=== PATIENT | female | born 1945 | race Caucasian/White ===

== ENCOUNTER 2017-09-29 10:42 | Inpatient (IN) | payer MEDICARE, BC ==
[~2017-09-29] VITALS: Ht 165.1 cm; Wt 98.7 kg
[~2017-09-29 10:42] MED LIST: ALBU90OI INH; ALBU90OI61 INH; ALPR.5 PO; AMLO5 PO; ASPI81CH PO; ASPI81EC PO; ATOR10 PO; ATOR20 PO; ATOR40TA PO; AZIT250 PO; AZIT500 PO; B Complete1 EACH PO; B-12500 MCG PO; BENZ100A PO; BUME2 PO; Biotin1 MG PO; CALCIUM ACETAT667 MG PO; CALMAGZIN PO; CARV25 PO; CARV3.125 PO; CARV6.25 PO; CHOL10002 PO; CINA30; CINA30 PO; CLON.1 PO; CLON.2 PO; CLON.5 PO; CLOP75 PO; CODGUAEL PO; CONEST1.25 PO; CYAN1000 PO; CYAN500 PO; Calcium Acetat667 MG PO; DILT60 PO; DOXY100 PO; ERGO400 PO; ERGO50000 PO; ESTMED1.5T; ESTMED1.5T PO; FERR325 PO; FLUSAL2505 IH; GABA100 PO; GABA800 PO; HYDACE5 PO; HYDR10 PO; HYDRA50 PO; INSDET100 SC; INSDET100 SQ; INSDET100 SUBQ; INSUASPI SC; INSUASPI SUBQ; LEVE500 PO; LEVFLO250 PO; LISI20 PO; METO25 PO; METO25ER PO; MIDO2.5 PO; Midodrine HCl10 MG PO; Mirapex0.5 MG PO; Mobic15 MG PO; NITR.1TP TOP; NORTHERA100 MG PO; Nephro-Vite RX1 EA PO; Neurontin 300300 MG PO; OMEP20ER PO; Omeprazole20 M1; Omeprazole20 M1 PO; PARO10 PO; PARO20 PO; PARO30 PO; POTCHL20ER PO; PRAM.125 PO; PRAM.5 PO; PRAV40 PO; PRED10 PO; PRED20 PO; PRED5 PO; Percocet 5-3251 EACH PO; Prednisone20 MG PO; RENAVITE; Renvela800 MG PO; SEVEC800 PO; SIMV40 PO; SIMVASTATIN; SODBIC650 PO; SODPOL15SA PO; Simvastatin20 MG PO; TRIBENZOR; TRIBENZOR 20-51 EACH PO; TRIBENZOR 40-11 EAC1 PO; VELPHORO500 MG; VELPHORO500 MG PO; VICODIN 5-3001 EACH PO; VITAMIN D32000 UNIT PO; VITAMIN D35000 UNIT PO; Vitamin D2 PO; ZINC15 PO; [UNRECOGNIZED DRUG - OTHER]; [UNRECOGNIZED DRUG - OTHER]; [UNRECOGNIZED DRUG - OTHER]; [UNRECOGNIZED DRUG - OTHER]; [UNRECOGNIZED DRUG - OTHER]; [UNRECOGNIZED DRUG - OTHER]; [UNRECOGNIZED DRUG - OTHER]
[2017-09-29 11:03] LABS: BASOPHILS ABSOLUTE AUTO 0.06 K/mm3 (0.00-0.23); BASOPHILS PERCENT AUTO 1 % (0-2); EOSINOPHILS ABSOLUTE AUTO 0.14 K/mm3 (0.00-0.68); EOSINOPHILS PERCENT AUTO 2 % (0-6); Hematocrit 34.7 % (33.0-51.0); Hemoglobin 10.6 g/dL (11.5-16.0); IMMATURE GRAN ABSOLUTE AUTO 0.02 K/mm3 (0.00-0.10); IMMATURE GRAN PERCENT AUTO 0 % (0-1); LYMPHOCYTES PERCENT AUTO 8 % (21-46); MONOCYTES ABSOLUTE AUTO 0.45 K/mm3 (0.16-1.47); MONOCYTES PERCENT AUTO 6 % (4-13); Mean Corpuscular HGB 28.4 pg (26.0-34.0); Mean Corpuscular HGB Conc 30.5 g/dL (31.5-36.5); Mean Corpuscular Volume 93 fL (80-100); Mean Platelet Volume 9.6 fL (9.1-12.4); NEUTROPHILS ABSOLUTE AUTO 6.32 K/mm3 (1.96-9.15); NEUTROPHILS PERCENT AUTO 83 % (41-73); Platelet Count 212 K/mm3 (150-400); RDW Coefficient Variation 16.7 % (11.7-14.2); RDW Standard Deviation 56.4 fL (35.1-46.3); Red Blood Cell Count 3.73 M/mm3 (3.80-5.20); White Blood Cell Count 7.59 K/mm3 (4.00-11.30)
[2017-09-29 11:15] LABS: International Normalized Ratio 1.03; Prothrombin Time Results 10.7 Sec (9.7-11.5)
[2017-09-29 11:25] LABS: Albumin, Blood 3.5 g/dL (3.4-5.0); Albumin/Globulin Ratio 0.8 (0.8-1.8); Bilirubin, Total 0.6 mg/dL (0.1-1.0); Bun/Creatinine Ratio 4.5 (12.0-20.0); Calcium, Blood 9.6 mg/dL (8.5-10.1); Creatinine, Blood 2.86 mg/dL (0.40-1.00); Globulin, Blood 4.2 g/dL (2.2-4.0); Potassium, Blood 3.7 mmol/L (3.5-5.5); Total Protein, Blood 7.7 g/dL (6.4-8.2); Troponin I 0.059 ng/mL (0.000-0.040)
[2017-09-30 04:52] LABS: BASOPHILS ABSOLUTE AUTO 0.09 K/mm3 (0.00-0.23); BASOPHILS PERCENT AUTO 1 % (0-2); EOSINOPHILS ABSOLUTE AUTO 0.32 K/mm3 (0.00-0.68); EOSINOPHILS PERCENT AUTO 5 % (0-6); Hematocrit 32.4 % (33.0-51.0); Hemoglobin 9.8 g/dL (11.5-16.0); IMMATURE GRAN ABSOLUTE AUTO 0.04 K/mm3 (0.00-0.10); IMMATURE GRAN PERCENT AUTO 1 % (0-1); LYMPHOCYTES ABSOLUTE AUTO 1.28 K/mm3 (0.84-5.20); LYMPHOCYTES PERCENT AUTO 19 % (21-46); MONOCYTES PERCENT AUTO 8 % (4-13); Mean Corpuscular HGB 28.4 pg (26.0-34.0); Mean Corpuscular HGB Conc 30.2 g/dL (31.5-36.5); Mean Corpuscular Volume 94 fL (80-100); NEUTROPHILS ABSOLUTE AUTO 4.45 K/mm3 (1.96-9.15); NEUTROPHILS PERCENT AUTO 67 % (41-73); Platelet Count 223 K/mm3 (150-400); RDW Coefficient Variation 16.8 % (11.7-14.2); RDW Standard Deviation 57.2 fL (35.1-46.3); Red Blood Cell Count 3.45 M/mm3 (3.80-5.20); White Blood Cell Count 6.68 K/mm3 (4.00-11.30)
[2017-09-30 05:15] LABS: Bun/Creatinine Ratio 5.7 (12.0-20.0); Calcium, Blood 9.4 mg/dL (8.5-10.1); Creatinine, Blood 4.72 mg/dL (0.40-1.00); Potassium, Blood 3.9 mmol/L (3.5-5.5)
[2017-10-02 05:13] LABS: Hematocrit 30.2 % (33.0-51.0); Hemoglobin 9.3 g/dL (11.5-16.0)
[2017-10-02 05:39] LABS: Magnesium, Blood 2.8 mg/dL (1.6-2.4)
[2017-10-02 05:44] LABS: Albumin, Blood 2.9 g/dL (3.4-5.0); Anion Gap 11 mmol/L (6-16); Blood Urea Nitrogen 56 mg/dL (8-24); CO2, Blood 29 mmol/L (21-32); Calcium, Blood 9.1 mg/dL (8.5-10.1); Chloride, Blood 90 mmol/L (98-108); Creatinine, Blood 8.02 mg/dL (0.40-1.00); Glomerular Filtration Rate 5 (60-); Glucose, Blood 191 mg/dL (70-99); Phosphorus, Blood 5.9 mg/dL (2.5-4.9); Potassium, Blood 4.3 mmol/L (3.5-5.5); Sodium, Blood 130 mmol/L (136-145)
[2017-10-02] MEDS ORDERED: TIOT18 INH (14:49)
[2017-10-02] MEDS ORDERED: PANT40 PO (14:49)
[2017-10-02] MEDS ORDERED: Nitroglycerin0.4 MG SL (14:50)
[2017-10-02] MEDS ORDERED: Lisinopril2.5 MG PO (14:50)
[2017-10-03 05:31] LABS: HCV Non Reactive (NR)
[2018-07-23] MEDS ORDERED: LEVE500 PO (12:32)
== END 2017-10-02 15:55 | disposition home or self-care (01) | DRG 313 ==
LOC: ER 10:42 → MEDS 13:49 → ENPENDDIS 10-02 13:00 → MEDS 10-02 15:55
PROVIDERS: Emergency Medicine; Internal Medicine; Internal Medicine Nephrology
PROC: 5A1D70Z Performance of Urinary Filtration, Intermittent, Less than 6 Hours Per Day (ICD-10-PCS; principal; 2017-10-02)
DX: R07.9 Chest pain, unspecified (principal); I25.10 Atherosclerotic heart disease of native coronary artery without angina pectoris; E11.22 Type 2 diabetes mellitus with diabetic chronic kidney disease; E11.51 Type 2 diabetes mellitus with diabetic peripheral angiopathy without gangrene; N18.6 End stage renal disease; I12.0 Hypertensive chronic kidney disease with stage 5 chronic kidney disease or end stage renal disease; I47.1 Supraventricular tachycardia; E87.1 Hypo-osmolality and hyponatremia; I25.2 Old myocardial infarction; E78.5 Hyperlipidemia, unspecified; D63.1 Anemia in chronic kidney disease; J44.9 Chronic obstructive pulmonary disease, unspecified; K21.9 Gastro-esophageal reflux disease without esophagitis; F17.210 Nicotine dependence, cigarettes, uncomplicated; E21.3 Hyperparathyroidism, unspecified; E83.39 Other disorders of phosphorus metabolism; I34.0 Nonrheumatic mitral (valve) insufficiency; Z99.2 Dependence on renal dialysis; Z99.81 Dependence on supplemental oxygen; Z95.5 Presence of coronary angioplasty implant and graft; Z95.1 Presence of aortocoronary bypass graft; Z79.82 Long term (current) use of aspirin; Z79.02 Long term (current) use of antithrombotics/antiplatelets; Z79.899 Other long term (current) drug therapy; Z91.048 Other nonmedicinal substance allergy status; Z79.4 Long term (current) use of insulin
CPT/HCPCS: 36415; 71046; 78452; 80048; 80053; 80069; 80074; 82947; 83735; 83880; 84132; 84484; 85014; 85018; 85025; 85610; 85730; 86706; 93005; 93010; 93017; 93306; 94640; 94760; 96374; 99285; A9500; J0280; J0881; J1650; J1815; J2785; J7030

== ENCOUNTER 2017-11-09 11:09 | Day surgery (SDC) | payer MEDICARE, BC ==
[~2017-11-09] VITALS: Ht 165.1 cm; Wt 102.0 kg
[~2017-11-09 11:09] MED LIST changes: +Lisinopril2.5 MG PO; +Nitroglycerin0.4 MG SL; +PANT40 PO; +TIOT18 INH
[2017-11-09] MEDS ORDERED: INSDET100 SC (12:05)
[2018-07-23] MEDS ORDERED: LEVE500 PO (12:32)
== END 2017-11-09 22:37 | disposition home or self-care (01) ==
LOC: MHTC 11:09
PROC: B246ZZ4 Ultrasonography of Right and Left Heart, Transesophageal (ICD-10-PCS; principal; 2017-11-09)
DX: I34.0 Nonrheumatic mitral (valve) insufficiency (principal); I25.5 Ischemic cardiomyopathy; I25.2 Old myocardial infarction; I13.2 Hypertensive heart and chronic kidney disease with heart failure and with stage 5 chronic kidney disease, or end stage renal disease; N18.6 End stage renal disease; E78.00 Pure hypercholesterolemia, unspecified; I50.9 Heart failure, unspecified; J44.9 Chronic obstructive pulmonary disease, unspecified; Z87.891 Personal history of nicotine dependence; Z99.2 Dependence on renal dialysis; Z95.1 Presence of aortocoronary bypass graft
CPT/HCPCS: 76376; 93312; 93325; 99152; 99153; J2250; J2310; J2405; J3010; J7040

== ENCOUNTER 2018-08-23 11:50 | Day surgery (SDC) | payer MEDICARE, BC | END 2018-08-23 23:01 | disposition home or self-care (01) | LOC: WOUND 11:50 | DX: E11.621 Type 2 diabetes mellitus with foot ulcer (principal); I70.234 Atherosclerosis of native arteries of right leg with ulceration of heel and midfoot; L97.512 Non-pressure chronic ulcer of other part of right foot with fat layer exposed; E11.29 Type 2 diabetes mellitus with other diabetic kidney complication; I12.0 Hypertensive chronic kidney disease with stage 5 chronic kidney disease or end stage renal disease; E11.22 Type 2 diabetes mellitus with diabetic chronic kidney disease; N18.6 End stage renal disease; Z99.2 Dependence on renal dialysis; Z72.0 Tobacco use | CPT/HCPCS: G0463 ==

== ENCOUNTER 2018-09-11 00:31 | Day surgery (SDC) | payer MEDICARE, BC | END 2018-09-11 22:37 | disposition home or self-care (01) | LOC: WOUND 00:31 | DX: E11.621 Type 2 diabetes mellitus with foot ulcer (principal); I70.234 Atherosclerosis of native arteries of right leg with ulceration of heel and midfoot; E11.29 Type 2 diabetes mellitus with other diabetic kidney complication; I12.0 Hypertensive chronic kidney disease with stage 5 chronic kidney disease or end stage renal disease; E11.22 Type 2 diabetes mellitus with diabetic chronic kidney disease; N18.6 End stage renal disease; Z99.2 Dependence on renal dialysis; Z72.0 Tobacco use | CPT/HCPCS: G0463 ==

== ENCOUNTER 2018-09-18 00:09 | Day surgery (SDC) | payer MEDICARE, BC | END 2018-09-18 23:00 | disposition home or self-care (01) | LOC: WOUND 00:09 | DX: E11.621 Type 2 diabetes mellitus with foot ulcer (principal); I70.234 Atherosclerosis of native arteries of right leg with ulceration of heel and midfoot; L97.512 Non-pressure chronic ulcer of other part of right foot with fat layer exposed; E11.29 Type 2 diabetes mellitus with other diabetic kidney complication; I12.0 Hypertensive chronic kidney disease with stage 5 chronic kidney disease or end stage renal disease; E11.22 Type 2 diabetes mellitus with diabetic chronic kidney disease; N18.6 End stage renal disease; Z99.2 Dependence on renal dialysis; Z72.0 Tobacco use; Z79.01 Long term (current) use of anticoagulants; Z79.4 Long term (current) use of insulin | CPT/HCPCS: G0463 ==

== ENCOUNTER 2018-09-28 13:15 | Day surgery (SDC) | payer MEDICARE, BC | END 2018-09-28 22:49 | disposition home or self-care (01) | LOC: WOUND 13:15 | DX: E11.621 Type 2 diabetes mellitus with foot ulcer (principal); L97.512 Non-pressure chronic ulcer of other part of right foot with fat layer exposed; I70.234 Atherosclerosis of native arteries of right leg with ulceration of heel and midfoot; E11.29 Type 2 diabetes mellitus with other diabetic kidney complication; N18.6 End stage renal disease; Z99.2 Dependence on renal dialysis; Z72.0 Tobacco use; I12.0 Hypertensive chronic kidney disease with stage 5 chronic kidney disease or end stage renal disease; Z79.4 Long term (current) use of insulin | CPT/HCPCS: 83036 ==

== ENCOUNTER 2018-10-05 12:45 | Day surgery (SDC) | payer MEDICARE, BC | END 2018-10-05 22:54 | disposition home or self-care (01) | LOC: WOUND 12:45 | PROC: 0HBMXZZ Excision of Right Foot Skin, External Approach (ICD-10-PCS; principal; 2018-10-05) | DX: E11.621 Type 2 diabetes mellitus with foot ulcer (principal); L97.112 Non-pressure chronic ulcer of right thigh with fat layer exposed; I70.234 Atherosclerosis of native arteries of right leg with ulceration of heel and midfoot | CPT/HCPCS: 87070; 87075; 87077; 87147; 87186; 87205 ==

== ENCOUNTER 2018-10-12 13:00 | Day surgery (SDC) | payer MEDICARE, BC | END 2018-10-12 23:10 | disposition home health service (06) | LOC: WOUND 13:00 | DX: I70.234 Atherosclerosis of native arteries of right leg with ulceration of heel and midfoot (principal); E11.621 Type 2 diabetes mellitus with foot ulcer; L97.413 Non-pressure chronic ulcer of right heel and midfoot with necrosis of muscle; B95.1 Streptococcus, group B, as the cause of diseases classified elsewhere; B95.61 Methicillin susceptible Staphylococcus aureus infection as the cause of diseases classified elsewhere; B95.4 Other streptococcus as the cause of diseases classified elsewhere; E11.22 Type 2 diabetes mellitus with diabetic chronic kidney disease; I13.2 Hypertensive heart and chronic kidney disease with heart failure and with stage 5 chronic kidney disease, or end stage renal disease; I50.9 Heart failure, unspecified; N18.6 End stage renal disease; Z99.2 Dependence on renal dialysis; J44.9 Chronic obstructive pulmonary disease, unspecified; Z95.1 Presence of aortocoronary bypass graft; F17.210 Nicotine dependence, cigarettes, uncomplicated ==

== ENCOUNTER 2018-10-17 05:07 | Inpatient (IN) | payer MEDICARE, BC ==
[~2018-10-17] VITALS: Ht 167.6 cm; Wt 95.7 kg
[2018-10-17 05:32] LABS: PO2 Arterial 147 mmHg (80-100); pH Blood Arterial 7.44 (7.35-7.45)
[2018-10-17 05:35] LABS: Calcium, Ionized (POC) 0.75 mmol/L (1.10-1.46); Chloride (POC) 99 mmol/L (98-108); Creatinine (POC) 5.4 mg/dL (0.6-1.0); Glucose (ISTAT POC) 254 mg/dL (70-99); Hemoglobin (POC) 10.9 g/dL (12.0-16.0); Potassium (POC) 3.5 mmol/L (3.5-5.5); Sodium (POC) 131 mmol/L (135-148); Total CO2 (POC) 25 mmol/L (21-32)
[2018-10-17 05:38] LABS: BASOPHILS ABSOLUTE AUTO 0.07 K/mm3 (0.00-0.23); BASOPHILS PERCENT AUTO 1 % (0-2); EOSINOPHILS ABSOLUTE AUTO 0.03 K/mm3 (0.00-0.68); EOSINOPHILS PERCENT AUTO 0 % (0-6); Hematocrit 35.3 % (33.0-51.0); Hemoglobin 10.5 g/dL (11.5-16.0); IMMATURE GRAN ABSOLUTE AUTO 0.04 K/mm3 (0.00-0.10); IMMATURE GRAN PERCENT AUTO 1 % (0-1); LYMPHOCYTES ABSOLUTE AUTO 0.47 K/mm3 (0.84-5.20); LYMPHOCYTES PERCENT AUTO 6 % (21-46); MONOCYTES ABSOLUTE AUTO 0.56 K/mm3 (0.16-1.47); MONOCYTES PERCENT AUTO 7 % (4-13); Mean Corpuscular HGB 26.5 pg (26.0-34.0); Mean Corpuscular HGB Conc 29.7 g/dL (31.5-36.5); Mean Corpuscular Volume 89 fL (80-100); Mean Platelet Volume 9.9 fL (9.1-12.4); NEUTROPHILS ABSOLUTE AUTO 7.01 K/mm3 (1.96-9.15); NEUTROPHILS PERCENT AUTO 86 % (41-73); Platelet Count 262 K/mm3 (150-400); RDW Coefficient Variation 16.8 % (11.7-14.2); RDW Standard Deviation 54.4 fL (35.1-46.3); Red Blood Cell Count 3.96 M/mm3 (3.80-5.20); White Blood Cell Count 8.18 K/mm3 (4.00-11.30)
[2018-10-17 06:08] LABS: Albumin, Blood 2.7 g/dL (3.4-5.0); Albumin/Globulin Ratio 0.6 (0.8-1.8); Bilirubin, Total 0.6 mg/dL (0.1-1.0); Bun/Creatinine Ratio 5.3 (12.0-20.0); Calcium, Blood 7.7 mg/dL (8.5-10.1); Creatinine, Blood 5.69 mg/dL (0.40-1.00); Globulin, Blood 4.6 g/dL (2.2-4.0); Potassium, Blood 3.9 mmol/L (3.5-5.5); Total Protein, Blood 7.3 g/dL (6.4-8.2); Troponin I 0.059 ng/mL (0.000-0.040)
[2018-10-17] MEDS ORDERED: Novolog100 UNIT/2 (06:39)
[2018-10-17] MEDS ORDERED: ERGO400 PO (06:41)
[2018-10-17] MEDS ORDERED: LOSA50 PO (07:45)
[2018-10-17] MEDS ORDERED: INSDET100 (07:45)
--- NOTE | 2018-10-17 10:57 | NUR ---
NURSING PCU DAYSHIFT: Assumed care of pt at approx 1030. Arrived from ER via crist[facility] escobar to unit bed using slider sheet. Pt is lethargic though arouses to verbal stimuli, oriented to self and location though did not know the month/year, able to follow commands, falls asleep during conversation. Denies any pain/discomfort at rest, c/o chronic neuropathy of BLE. Skin is fragile w/scattered bruising, large bruise to L hip and small bruise to coccyx which pt states is from recent falls at home, small abrasion to L buttocks, R heel wound w/dressing in place, yeast under b/l breast. Tele in place, afib w/HR 80-90's, BP stable, trace BLE edema, no c/o CP/pressure. 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 Abd SNT, BT+, makes minimal urine per pt. PIV x2, s/l, fistula noted to LFA w/+ bruit/thrill. Admission orders reviewed, warehouse packer notified of consult, HD RN notified of pt's arrival to unit. Pt denies any current needs or questions regarding plan of care. Call light in reach though bed alarm is set for safety purposes, cont to monitor for any changes.
[2018-10-17 12:05] LABS: Influenza A Positive (NEGATIVE); Influenza B Negative (NEGATIVE)
--- NOTE | 2018-10-17 16:34 | NUR ---
NURSING PCU DAYSHIFT SUMMARY: No significant changes since arrival to unit though pt did become more alert and interactive w/staff and family. Sat up in bed for lunch, tolerated well though had minimal appetite. Pt appears more tired this afternoon. Spouse remains at bedside, plan of care discussed. Influenza results received, pt placed in droplet isolation for positive result. Bed alarm remains in use for safety purposes, call light in reach of pt and family. Pt family deny questions/needs at this time, cont to monitor until rpt is give to NOC RN.
[2018-10-18 04:18] LABS: Hematocrit 31.6 % (33.0-51.0); Hemoglobin 9.6 g/dL (11.5-16.0)
[2018-10-18 04:36] LABS: Albumin, Blood 2.7 g/dL (3.4-5.0); Anion Gap 14 mmol/L (6-16); Blood Urea Nitrogen 27 mg/dL (8-24); Bun/Creatinine Ratio 5.1 (12.0-20.0); CO2, Blood 25 mmol/L (21-32); Calcium, Blood 7.4 mg/dL (8.5-10.1); Chloride, Blood 92 mmol/L (98-108); Creatinine, Blood 5.28 mg/dL (0.40-1.00); Glomerular Filtration Rate 9 (60-); Glucose, Blood 171 mg/dL (70-99); Magnesium, Blood 1.9 mg/dL (1.6-2.4); Phosphorus, Blood 3.7 mg/dL (2.5-4.9); Potassium, Blood 3.7 mmol/L (3.5-5.5); Sodium, Blood 131 mmol/L (136-145)
--- NOTE | 2018-10-18 04:51 | NUR ---
SHIFT SUMMARY: PATIENT CONFUSION INCREASING THIS SHIFT, REDIRECTABLE AND SLOW TO ANSWER. PATIENT FINGERS HAVE A SLIGHT BLUE TINT TO THEM, SKIN COLD. PLACED WARM BLANKETS ON PATIENT AND COLOR RETURNED TO SKIN, TOLERATED HD WELL. BED LOW AND LOCKED WITH EXIT ALARM ON AND CALL LIGHT WITHIN REACH.
--- NOTE | 2018-10-18 05:51 | NUR ---
TO KNOW: DRESSING CHANGE COMPLETED ON RIGHT HEEL. ALGENATE, WOUND WASH, AND MEPELEX. PATIENT STATES SHE IS ANURIC, NO OUTPUT THIS SHIFT
--- NOTE | 2018-10-18 14:23 | NUR ---
NOTE PT AWAKE. ALERT TO PERSON. FOLOWS SOME DIRECTIONS. FORGETFUL AND DELAYED RESPONCES. FILLS IN FOR HER. VSS. UP TO BSC WITH 1 PIVOT TRANSFER AND GAIT BELT. TOLERATED WELL. PT NON WEIGHT BEARING RIGHT FOOT D/T WOUND. PT IS ESTABLISHED IN THE WOUND CARE CLINIC. DRESSING TO RIGHT FOOT CD&I. PT DOES HAVE A SHARP, ELECTRIC PAINT THAT SHOOTS UP HER LEG FROM HER FOOT. THIS NURSE TALKED WITH DR FITZPATRICK AND HE AGREED TO RESTART HER GABAPENTIN. ACCORFDING TO HER MED REC SHE TAKES GABAPENTIN 800MG DAILY. [facility] STATED THAT THE DOSE IS TOO HIGH FOR A DIALYSIS PT AND SHE DECREASED IT TO 200MG PER RENAL DOSING GUIDELINES. PT MEDICATED WITH FENTANYL X1 FOR RIGHT FOOT PAIN. EFFECTIVE. PT WEANED TO RA. SAT 90-94% RA. VOICE CLEAR AND STRONG. WEAK, DRY COUGH. NO FEVER. DR MCDUFFIE WAS HERE EARLY MORING AND STATED NO DIALYSIS TODAY. CONTINUE POT.
--- NOTE | 2018-10-18 23:20 | NUR ---
STATUS CHANGE. PT ROUNDING DONE AT THIS TIME TO ASSESS. PT IS HEARD TO BE MOANING IN ROOM, AND REPORTS HAVING HAD BM IN BED. PT APPEARS TO BE PALE AND DIAPHORTIC AT THIS TIME. VITALS TAKEN BP APPEARS TO BE SLIGHTLY LOWER THAN BASELINE FOR THIS PT. FISHING WORKER TO ROOM TO ASSIST IN CLEANING PT. BM NOTED AT THIS TIME TO HAVE FOUL ODOR AND LOOKS TO CONTAIN TAYO RED BLOOD W/ GELATINOUS CLOTS. PT PLACED ON 2L NC D/T REPORTS OF SOB. AFTER PT CLEANED AND NEW ATTENDS PUT IN PLACE, PT REPORTS ANOTHER BM, NOTED TO BE TAYO RED BLOOD AGAIN. PROVIDER TO BE CALLED FOR ORDERS.
--- NOTE | 2018-10-18 23:30 | NUR ---
PROVIDER CALLED CHANGE IN MENTAL STATUS AND PHYSICAL STATUS REPORTED TO PROVIDER. ORDERS OBTAINED FOR STAT BLOOD WORK AND BP MONITORING.
[2018-10-18 23:40] LABS: BASOPHILS ABSOLUTE AUTO 0.05 K/mm3 (0.00-0.23); BASOPHILS PERCENT AUTO 1 % (0-2); EOSINOPHILS ABSOLUTE AUTO 0.04 K/mm3 (0.00-0.68); EOSINOPHILS PERCENT AUTO 1 % (0-6); Hematocrit 37.1 % (33.0-51.0); IMMATURE GRAN ABSOLUTE AUTO 0.02 K/mm3 (0.00-0.10); IMMATURE GRAN PERCENT AUTO 1 % (0-1); LYMPHOCYTES ABSOLUTE AUTO 0.99 K/mm3 (0.84-5.20); LYMPHOCYTES PERCENT AUTO 24 % (21-46); MONOCYTES ABSOLUTE AUTO 0.42 K/mm3 (0.16-1.47); MONOCYTES PERCENT AUTO 10 % (4-13); Mean Corpuscular HGB 26.6 pg (26.0-34.0); Mean Corpuscular HGB Conc 29.6 g/dL (31.5-36.5); Mean Corpuscular Volume 90 fL (80-100); NEUTROPHILS ABSOLUTE AUTO 2.54 K/mm3 (1.96-9.15); NEUTROPHILS PERCENT AUTO 63 % (41-73); Platelet Count 225 K/mm3 (150-400); RDW Coefficient Variation 16.8 % (11.7-14.2); RDW Standard Deviation 55.6 fL (35.1-46.3); Red Blood Cell Count 4.14 M/mm3 (3.80-5.20); White Blood Cell Count 4.06 K/mm3 (4.00-11.30)
[2018-10-18 23:56] LABS: Bun/Creatinine Ratio 5.9 (12.0-20.0); Calcium, Blood 7.2 mg/dL (8.5-10.1); Creatinine, Blood 6.32 mg/dL (0.40-1.00); Potassium, Blood 4.1 mmol/L (3.5-5.5)
--- NOTE | 2018-10-19 00:20 | NUR ---
TRANSFER TO ICU REPORT CALLED TO SHANA GONZALEZ. PT WAS SEEN BY HOSP AND GI PROVIDERS AND WAS STATUS CHANGED TO ICU. REPORT GIVEN, AND PT CARE TRANSFERRED TO ICU, BELONGINGS GATHERED AND SENT W/ PT. PT CONTINUED TO HAVE DROP IN BP, AND HAD 2 MORE BLOODY BM. GI PROVIDER DISCUSSING W/ PT POSSIBLE NEED FOR PROCEDURE TONIGHT. PT TAKEN TO ICU VIA BED W/ 3 X RAY PHYSICIAN.
--- NOTE | 2018-10-19 00:30 | NUR ---
ASSUMED CARE OF PT FROM PCU PT COMES TO ICU AFTER MULTIPLE INCIDENTS OF STOOL WITH TAYO BLOOD. PT TRANSFERED TO ICU BED AND NOTED TO HAVE HAD ANOTHER BOWEL MOVEMENT. THIS STOOL ALSO HAD SMALL AMOUNTS OF TAYO BLOOD. PT IS RECIEVING 1L BOLUS NS TO INCREASE BLOOD PRESSURE. DR CALVILLO CONSULTED PT WHILE IN PCU. PLANNED UPPER ENDOSCOPY 10/19/18 @1700 2 UNITS PRBC ORDERED FOR INFUSION ALONG WITH PROTONIX BOLUS AND PROTONIX DRIP. PT'S AT SIDE. SEE FULL SHIFT ASSESSMENT.
--- NOTE | 2018-10-19 07:42 | NUR ---
ASSUMED CARE NOTE REPORT RECEIVED FROM CARLOS SALDANA. BEDSIDE ROUNDING DONE. PT RESTING IN BED WITH HOB ELEVATED 30 DEGREES. PT WITH EYES OPEN, C/O 9/10 PAIN TO RIGHT FOOT. PT REPORTS THIS PAIN LEVEL UNCHANGED WITH TYLENOL GIVEN BY CARLOS SALDANA. PER REPORT PT NORMALLY TAKES DILAUDID, THIS WAS D/Cd DUE TO PT'S DECREASED MENTATION. PT'S BP HYPOTENSIVE WITH SBP IN LOW 90S. DISCUSSED WITH PT THE EFFECTS OF NARCOTICS ON MENTATION AND VS, PT VERBALIZED UNDERSTANDING AND AGREED TO TRY ALTERNATIVE METHODS OF PAIN MANAGEMENT. RIGHT FOOT ELEVATED ON PILLOWS AND TV ON TO AIDE DISTRACTION PER PT REQUEST. PT'S AT BEDSIDE, PRESENT FOR ROUNDING. PER REPORT FROM CARLOS SALDANA DR WANTS PT TO RECEIVE TAMIFLU AFTER DIALYSIS TODAY. COMPUTER HARDWARE DEVELOPER TO BE BEDSIDE AT 1030. RHYTHM ON MONITOR SHOWING AFIB WITH HR IN 70S. SPO2 96-98% ON 2LPM VIA NC, BREATHING EVEN AND UNLABORED ALTHOUGH PT SOUNDS CONGESTED WITH MOIST COUGH, NONPRODUCTIVE. SEE FLOWSHEET FOR VS. BED IN LOWEST POSITION, SIDE RAILS RAISED, CALL LIGHT IN REACH. WILL CONT TO MONITOR PT.
--- NOTE | 2018-10-19 09:30 | NUR ---
DR RIVERO ROUNDS DR RIVERO AWARE THAT 2ND UNIT PRBC RUNNING, LABS TO BE DRAWN ONCE TRANSFUSION COMPLETED. DR RIVERO NOTIFIED OF PT'S CONTINUED PAIN, UNRELIEVED BY TYLENOL AND WITH HYPOTENSION FENTANYL HELD. PER DR RIVERO OKAY TO RESUME PT'S DILAUDID AT HOME DOSE AND D/C FENTANYL PT IS RENALLY IMPAIRED. DR RIVERO AWARE THAT MORNING DOSE METOPROLOL HELD DUE TO SBP IN 90S, OKAY TO GIVE IF MAP REMAINS ABOVE 65. MIDODRINE 10MG ORDERED FOR DIALYSIS DAYS IF MAP SUSTAINS BELOW 65. NO FURTHER CHANGES TO PLAN OF CARE AT THIS TIME. WILL CONT TO MONITOR PT.
--- NOTE | 2018-10-19 09:38 | NUR ---
PRESSURE SORE NOTED PRESSURE SORE NOTED TO INNER LEFT GLUTEAL CLEFT. SEE PHOTO IN CHART. MEPILEX DRESSING PLACED OVER SITE FOR PROTECTION AND PT REPOSITIONED TO LEFT SIDE WITH PILLOW UNDER RIGHT HIP. WILL CONT TO MONITOR. DR RIVERO AWARE.
--- NOTE | 2018-10-19 11:43 | NUR ---
DIALYSIS DIALYSIS TAKING PLACE AT BEDSIDE AT THIS TIME. LABS DRAWN FROM HEMODIALYSIS PORT AND SENT TO LAB. WILL CONT TO MONITOR PT.
[2018-10-19 13:25] LABS: Hematocrit 32.7 % (33.0-51.0); Hemoglobin 10.3 g/dL (11.5-16.0)
[2018-10-19 14:29] LABS: Albumin, Blood 2.5 g/dL (3.4-5.0); Anion Gap 16 mmol/L (6-16); Blood Urea Nitrogen 39 mg/dL (8-24); Bun/Creatinine Ratio 5.8 (12.0-20.0); CO2, Blood 22 mmol/L (21-32); Calcium, Blood 6.6 mg/dL (8.5-10.1); Chloride, Blood 94 mmol/L (98-108); Creatinine, Blood 6.67 mg/dL (0.40-1.00); Glomerular Filtration Rate 6 (60-); Glucose, Blood 133 mg/dL (70-99); Magnesium, Blood 1.9 mg/dL (1.6-2.4); Phosphorus, Blood 5.4 mg/dL (2.5-4.9); Potassium, Blood 3.6 mmol/L (3.5-5.5); Sodium, Blood 132 mmol/L (136-145)
--- NOTE | 2018-10-19 18:06 | NUR ---
10/19/18 1806 Hiren Encarnacion 3-LEAD EKG REVIEWED WITH PHYSICIAN PRIOR TO START OF PROCEDURE. MONITOR INTACT WITH CONTINUOUS PULSE OXIMETRY AND INTERMITTENT BP. O2 VIA N/C INTACT THROUGHOUT SEDATION/PROCEDURE. History, Chart, Medications and Allergies reviewed before start of procedure.Bite Block Placed
--- NOTE | 2018-10-19 18:25 | NUR ---
SCOPE DR CALVILLO, ANESTHESIOLOGIST, AND DAY SURGERY TEAM AT BEDSIDE FOR SCOPE.
--- NOTE | 2018-10-19 18:51 | NUR ---
SCOPE SCOPE COMPLETED. PER DR CALVILLO 2 CLIPS PLACED IN UPPER STOMACH. PT OKAY TO CHANGE STATUS TO PCU FROM HIS STANDPOINT IF OKAYED BY HOSPITALIST. NO FURTHER CHANGES TO PLAN OF CARE AT THIS TIME. WILL CONT TO MONITOR PT.
--- NOTE | 2018-10-19 20:15 | NUR ---
STATUS CHANGE PER DR HEARN PT OKAY TO CHANGE STATUS TO PCU.
--- NOTE | 2018-10-19 22:00 | NUR ---
ASSUMED PT CARE FROM CARLOS JACOBSON PT RESTING IN BED; ALERT AND ORIENTED; ABLE TO MAKE NEEDS KNOWN. CALL LIGHT WITHIN REACH
--- NOTE | 2018-10-19 22:05 | NUR ---
REPORT GIVEN TO CARLOS CONDE. AMAYA TO ASSUME CARE OF PT AT THIS TIME.
[2018-10-20 04:08] LABS: Hematocrit 34.2 % (33.0-51.0); Hemoglobin 10.5 g/dL (11.5-16.0)
[2018-10-20 04:29] LABS: Albumin, Blood 2.7 g/dL (3.4-5.0); Anion Gap 12 mmol/L (6-16); Blood Urea Nitrogen 24 mg/dL (8-24); Bun/Creatinine Ratio 4.9 (12.0-20.0); CO2, Blood 26 mmol/L (21-32); Calcium, Blood 6.8 mg/dL (8.5-10.1); Chloride, Blood 99 mmol/L (98-108); Creatinine, Blood 4.94 mg/dL (0.40-1.00); Glomerular Filtration Rate 9 (60-); Glucose, Blood 102 mg/dL (70-99); Phosphorus, Blood 4.1 mg/dL (2.5-4.9); Potassium, Blood 3.8 mmol/L (3.5-5.5); Sodium, Blood 137 mmol/L (136-145)
--- NOTE | 2018-10-20 05:28 | NUR ---
END OF SHIFT SUMMARY PT HAS BEEN ALERT AND ORIENTED; ABLE TO MAKE NEEDS KNOWN. NOTED TO BE FORGETFUL/CONFUSED WITH FREQUENT REMINDERS. PT HAS BEEN REPOSITIONED EVERY TWO HOURS FOR COMFORT. COMPLAINTS OF RIGHT HEEL PAIN 7-8/10; MEDICATED WITH ORAL NEEDED DILAUDID PER ORDERS; APPEARS EFFECTIVE; PT'S GOAL HAS BEEN 4/10 FOR PAIN, WHICH HAS BEEN MET THIS SHIFT. PT AGITATED A COUPLE TIMES WITH HOW FREQUENTLY SHE HAS BEEN BOTHERED AND WOKEN UP FOR VITAL SIGNS/TURNING, ECT... OVERALL PT HAS BEEN COMPLIANT AND COOPERATIVE WITH CARE; PT DOES NOT APPEAR TO BE IN ANY DISTRESS AT THIS TIME.
--- NOTE | 2018-10-20 08:00 | NUR ---
PT PLEASANT COOP A/O STATES LIGHT PAIN IN FOOT. NOT REQUESTING PAIN MEDS AT THIS TIME. HUSB AT BEDSIDE. LUNGS COARSE AND SOME WHEEZY. ON 2.5 L O2 N/C AT THIS TIME. RESP EASY, UNLABORED. BT X4 LAST BM REPORTED YEST. ANURIC , DIALYSIS PT. PT IS ABLE TO TRANSFER WITH FWW AND 1 ASST AT BASELINE PER . HE CAN GET HER TO BATHROOM FROM RECLINER. THAT IS ABOUT ALL SHE WALKS. BED IN LOW POSITOIN, CALL LITE IN REACH. AT BEDSIDE.
--- NOTE | 2018-10-20 11:56 | NUR ---
BP 94/49, 87/52, 84/49, PULSE, AVG 79. PT STATES FEELS OKAY, BUT NOT AT HOME YET. STATES ASYMPTOMATIC. CALLED DR RIVERO. HE STATES NO MIDODRINE, NO ORDERS. PT STABLE.
--- NOTE | 2018-10-20 18:26 | NUR ---
PT PLEASANT TODAY. DID NOT ASK FOR ANY PAIN MED UNTIL 1819. ADMIN. PT HUSB AT BEDSIDE. LOW BP DISCUSSED WITH DR RIVERO TODAY. NO ORDERS. DID BECOME SOB AT ONE TIME THIS AFT. SCOOTED UP IN BED. DID WELL. MOSTLY NEEDED TO COUGH AND CLEAR. DID WELL . NO OTHER CONCERNS AT THIS TIME. BED IN LOW POSITION, CALLL LITE IN REACH, CALLS APPROP. IN ROOM AT BEDSIDE RESISTOR TESTER.
--- NOTE | 2018-10-20 19:15 | NUR ---
ASSUMED PT CARE FROM CARLOS RAMOS PT SITTING UP IN BED VISITING WITH . PT IS CURRENTLY MEDICAL STATUS WITH NO TELEMETRY. PT HAS CALL LIGHT IN REACH; ABLE TO MAKE NEEDS KNOWN. PT DOES NOT APPEAR IN ANY DISTRESS AT THIS TIME.
[2018-10-21 04:17] LABS: BASOPHILS ABSOLUTE AUTO 0.05 K/mm3 (0.00-0.23); BASOPHILS PERCENT AUTO 1 % (0-2); EOSINOPHILS ABSOLUTE AUTO 0.14 K/mm3 (0.00-0.68); EOSINOPHILS PERCENT AUTO 3 % (0-6); Hematocrit 35.2 % (33.0-51.0); Hemoglobin 10.7 g/dL (11.5-16.0); IMMATURE GRAN ABSOLUTE AUTO 0.02 K/mm3 (0.00-0.10); IMMATURE GRAN PERCENT AUTO 0 % (0-1); LYMPHOCYTES PERCENT AUTO 18 % (21-46); MONOCYTES ABSOLUTE AUTO 0.38 K/mm3 (0.16-1.47); MONOCYTES PERCENT AUTO 8 % (4-13); Mean Corpuscular HGB 26.9 pg (26.0-34.0); Mean Corpuscular HGB Conc 30.4 g/dL (31.5-36.5); Mean Corpuscular Volume 88 fL (80-100); Mean Platelet Volume 10.4 fL (9.1-12.4); NEUTROPHILS ABSOLUTE AUTO 3.19 K/mm3 (1.96-9.15); NEUTROPHILS PERCENT AUTO 70 % (41-73); Platelet Count 189 K/mm3 (150-400); RDW Coefficient Variation 16.3 % (11.7-14.2); RDW Standard Deviation 53.2 fL (35.1-46.3); Red Blood Cell Count 3.98 M/mm3 (3.80-5.20); White Blood Cell Count 4.58 K/mm3 (4.00-11.30)
[2018-10-21 04:36] LABS: Albumin, Blood 2.7 g/dL (3.4-5.0); Anion Gap 11 mmol/L (6-16); Blood Urea Nitrogen 30 mg/dL (8-24); Bun/Creatinine Ratio 4.9 (12.0-20.0); CO2, Blood 26 mmol/L (21-32); Calcium, Blood 6.5 mg/dL (8.5-10.1); Chloride, Blood 97 mmol/L (98-108); Creatinine, Blood 6.07 mg/dL (0.40-1.00); Glomerular Filtration Rate 7 (60-); Glucose, Blood 140 mg/dL (70-99); Magnesium, Blood 1.9 mg/dL (1.6-2.4); Potassium, Blood 3.7 mmol/L (3.5-5.5); Sodium, Blood 134 mmol/L (136-145)
--- NOTE | 2018-10-21 05:33 | NUR ---
END OF SHIFT SUMMARY PT HAS REMAINED ALERT AND ABLE TO FOLLOW COMMANDS AND MAKE NEEDS KNOWN. AT BEDSIDE ALL NIGHT. PT REQUESTED ONE NEEDED DILAUDID D/T 03/06 PAIN TO RIGHT HEEL. PT HAS BEEN REPOSITIONED AND TURNED FOR COMFORT WITH ONE BREAK D/T PT REQUESTING TO NOT BE DISTURBED SHE FEELS LIKE SHE HASN'T RECEIVED MUCH REST HERE. PT DOES NOT APPEAR TO BE IN ANY DISTRESS. CALL LIGHT IS WITHIN REACH.
--- NOTE | 2018-10-21 08:00 | NUR ---
FEMALE PATIENT ATE SMALL AMT OF BREAKFAST.STOOD WITH 2 RN AND THEN TO SHOWER. BRIAN WELL. DR MCDUFFIE IN TO SEE PATIENT AND HER . PLACED PATIENT IN WHEELCHAIR AND TAKEN AT 1000 TO DIALYSIS. FISTULA IN LEFT ARM. GOOD BRUIT AND THRILL. RIGHT ANKLE HAS A MEPALEX IN PLACE AND SMELLS VERY FOUL. WILL BE REDRESSED WHEN BACK FROM DIALYSIS.
--- NOTE | 2018-10-21 16:01 | NUR ---
PATIENT FOUND STANDING AT SIDE OF BED. ASSISTED BACK INTO BED.
--- NOTE | 2018-10-21 18:31 | NUR ---
UP TO BSC WITH 2 JOSH ASSIST. ONLY FLATUS. BACK TO BED WITH 2 PERSON ASSIST. AT BEDSIDE. SOME OF THE PREVIOUS LOVONOX SITES BLEEDING AND BANDAIDES APPLIED. CONTS WITH LOOSE MOIST COUGH AND 3L NC O2.
--- NOTE | 2018-10-21 19:15 | NUR ---
ASSUMED PT CARE FROM CARLOS MANN. PT SLEEPING IN BED WITH AT BEDSIDE. PT DOES NOT APPEAR TO BE IN ANY DISTRESS AT THIS TIME.
--- NOTE | 2018-10-21 21:45 | NUR ---
PT'S REQUESTS TO LET PT SLEEP TONIGHT AND NOT TO WAKE UP FOR REPOSITIONING HE WILL ASSIST HER WITH REPOSITIONING TONIGHT. INFORMED PT THAT I WOULD HAVE TO WAKE HER UP AROUND 0400 FOR ANOTHER SET OF VITAL SIGNS AND BOTH PT AND OKAY WITH THAT. CALL LIGHT LEFT IN REACH AND ENCOURAGED USE TO CALL IF NEEDED. PT APPEARS COMFORTABLE AT THIS TIME; DOES NOT APPEAR TO BE IN ANY DISTRESS.
[2018-10-22 03:18] LABS: BASOPHILS ABSOLUTE AUTO 0.05 K/mm3 (0.00-0.23); BASOPHILS PERCENT AUTO 1 % (0-2); EOSINOPHILS ABSOLUTE AUTO 0.09 K/mm3 (0.00-0.68); EOSINOPHILS PERCENT AUTO 2 % (0-6); Hematocrit 36.4 % (33.0-51.0); Hemoglobin 11.1 g/dL (11.5-16.0); IMMATURE GRAN ABSOLUTE AUTO 0.01 K/mm3 (0.00-0.10); IMMATURE GRAN PERCENT AUTO 0 % (0-1); LYMPHOCYTES ABSOLUTE AUTO 0.76 K/mm3 (0.84-5.20); LYMPHOCYTES PERCENT AUTO 19 % (21-46); MONOCYTES ABSOLUTE AUTO 0.33 K/mm3 (0.16-1.47); MONOCYTES PERCENT AUTO 8 % (4-13); Mean Corpuscular HGB 26.7 pg (26.0-34.0); Mean Corpuscular HGB Conc 30.5 g/dL (31.5-36.5); Mean Corpuscular Volume 88 fL (80-100); Mean Platelet Volume 9.9 fL (9.1-12.4); NEUTROPHILS ABSOLUTE AUTO 2.75 K/mm3 (1.96-9.15); NEUTROPHILS PERCENT AUTO 69 % (41-73); Platelet Count 177 K/mm3 (150-400); RDW Coefficient Variation 16.3 % (11.7-14.2); RDW Standard Deviation 52.5 fL (35.1-46.3); Red Blood Cell Count 4.16 M/mm3 (3.80-5.20); White Blood Cell Count 3.99 K/mm3 (4.00-11.30)
[2018-10-22 03:34] LABS: Anion Gap 12 mmol/L (6-16); Blood Urea Nitrogen 24 mg/dL (8-24); Bun/Creatinine Ratio 4.5 (12.0-20.0); CO2, Blood 27 mmol/L (21-32); Calcium, Blood 7.3 mg/dL (8.5-10.1); Chloride, Blood 97 mmol/L (98-108); Creatinine, Blood 5.35 mg/dL (0.40-1.00); Glomerular Filtration Rate 8 (60-); Glucose, Blood 137 mg/dL (70-99); Potassium, Blood 3.8 mmol/L (3.5-5.5); Sodium, Blood 136 mmol/L (136-145)
[2018-10-22 03:35] LABS: Albumin, Blood 2.8 g/dL (3.4-5.0); Magnesium, Blood 1.9 mg/dL (1.6-2.4); Phosphorus, Blood 3.3 mg/dL (2.5-4.9)
--- NOTE | 2018-10-22 06:38 | NUR ---
END OF SHIFT SUMMARY PT ONLY DISTURBED FOR VITAL SIGNS AND BLOOD DRAWS THIS MORNING; RESPECTED 'S WISH WITH LETTING PT SLEEP T/O NIGHT WITHOUT WAKING FOR REPOSITION/TURNS. PT HAS HAD CALL LIGHT IN REACH AND AT BEDSIDE. PT DOES NOT APPEAR TO BE IN ANY DISTRESS AT THIS TIME.
--- NOTE | 2018-10-22 10:00 | NUR ---
ASSUMED CARE: REPORT RECEIVED FROM AMAYA Shaw RN. ASSUMED CARE OF THIS PT AT APPROX 0700. ON ASSESSMENT, THE PT IS RESTING QUIETLY. SHE DENIES NEEDS OR PAIN. PROVIDERS, DR. MCDUFFIE & DR. RIVERO, HAVE BEEN IN TO SEE PT. PLAN IS FOR THE PT TO REMAIN ADMITTED FOR ONE MORE DAY & RECEIVE DIALYSIS HERE TODAY SINCE [facility] IS CLOSED. THE PT IS NOW AT DIALYSIS. WILL CONTINUE TO MONITOR & UPDATE NEEDED.
[2018-10-22] MEDS ORDERED: MIDO5 PO (14:51)
[2018-10-22] MEDS ORDERED: PARO20 PO (14:54)
[2018-10-22] MEDS ORDERED: PANT40 PO (14:54)
== END 2018-10-22 15:15 | disposition home or self-care (01) | DRG 871 ==
LOC: ER 05:07 → PCU 05:08 → ICUE 05:08 → ERHOLD 05:08 → ICUE 10:30 → PCU 10:32 → ICUE 10-19 00:26
PROVIDERS: Emergency Medicine; Internal Medicine Gastroenterology; Internal Medicine Nephrology; Nurse Practitioner Acute Care; ADMIT Internal Medicine
PROC: 5A1D70Z Performance of Urinary Filtration, Intermittent, Less than 6 Hours Per Day (ICD-10-PCS; 2018-10-17)
PROC: 5A1D70Z Performance of Urinary Filtration, Intermittent, Less than 6 Hours Per Day (ICD-10-PCS; 2018-10-19)
PROC: 0W3P8ZZ Control Bleeding in Gastrointestinal Tract, Via Natural or Artificial Opening Endoscopic (ICD-10-PCS; principal; 2018-10-19 13:30)
PROC: 5A1D70Z Performance of Urinary Filtration, Intermittent, Less than 6 Hours Per Day (ICD-10-PCS; 2018-10-21)
PROC: 5A1D70Z Performance of Urinary Filtration, Intermittent, Less than 6 Hours Per Day (ICD-10-PCS; 2018-10-22)
DX: A41.9 Sepsis, unspecified organism (principal); G92 Toxic encephalopathy; J18.9 Pneumonia, unspecified organism; N18.6 End stage renal disease; R57.8 Other shock; I12.0 Hypertensive chronic kidney disease with stage 5 chronic kidney disease or end stage renal disease; K92.2 Gastrointestinal hemorrhage, unspecified; N25.81 Secondary hyperparathyroidism of renal origin; E87.1 Hypo-osmolality and hyponatremia; L97.419 Non-pressure chronic ulcer of right heel and midfoot with unspecified severity; I42.9 Cardiomyopathy, unspecified; R65.20 Severe sepsis without septic shock; J44.9 Chronic obstructive pulmonary disease, unspecified; I25.10 Atherosclerotic heart disease of native coronary artery without angina pectoris; I10 Essential (primary) hypertension; J10.1 Influenza due to other identified influenza virus with other respiratory manifestations; E11.22 Type 2 diabetes mellitus with diabetic chronic kidney disease; D63.1 Anemia in chronic kidney disease; E11.621 Type 2 diabetes mellitus with foot ulcer; F32.9 Major depressive disorder, single episode, unspecified; E11.51 Type 2 diabetes mellitus with diabetic peripheral angiopathy without gangrene; K21.9 Gastro-esophageal reflux disease without esophagitis; E78.5 Hyperlipidemia, unspecified; I95.9 Hypotension, unspecified; E88.09 Other disorders of plasma-protein metabolism, not elsewhere classified; Z95.1 Presence of aortocoronary bypass graft; Z79.82 Long term (current) use of aspirin; Z79.4 Long term (current) use of insulin; Z79.899 Other long term (current) drug therapy; Z95.5 Presence of coronary angioplasty implant and graft; Z99.81 Dependence on supplemental oxygen; I25.2 Old myocardial infarction; Z87.891 Personal history of nicotine dependence
CPT/HCPCS: 36415; 36430; 36600; 71045; 80047; 80048; 80053; 80069; 82803; 82947; 83605; 83690; 83735; 84145; 84484; 85014; 85018; 85025; 85730; 86850; 86900; 86901; 86923; 87040; 87804; 93005; 93010; 94640; 94760; 96365; 96367; 96372-59; 96375; 99285-25; C9113; J0456; J0690; J0881; J1170; J1430; J1644; J2310; J2370; J2405; J3010; J7030; J7050; J7120; P9016; P9046

== ENCOUNTER 2018-10-26 05:37 | Emergency (ER) | payer MEDICARE, BC ==
[~2018-10-26] VITALS: Ht 165.1 cm; Wt 95.2 kg
[~2018-10-26 05:37] MED LIST changes: +INSDET100; +LOSA50 PO; +MIDO5 PO; +Novolog100 UNIT/2
[2018-10-26 06:41] LABS: BASOPHILS ABSOLUTE AUTO 0.02 K/mm3 (0.00-0.23); BASOPHILS PERCENT AUTO 0 % (0-2); EOSINOPHILS ABSOLUTE AUTO 0.06 K/mm3 (0.00-0.68); EOSINOPHILS PERCENT AUTO 1 % (0-6); Hematocrit 36.3 % (33.0-51.0); Hemoglobin 10.9 g/dL (11.5-16.0); IMMATURE GRAN ABSOLUTE AUTO 0.03 K/mm3 (0.00-0.10); IMMATURE GRAN PERCENT AUTO 0 % (0-1); LYMPHOCYTES ABSOLUTE AUTO 0.48 K/mm3 (0.84-5.20); LYMPHOCYTES PERCENT AUTO 7 % (21-46); MONOCYTES ABSOLUTE AUTO 0.36 K/mm3 (0.16-1.47); MONOCYTES PERCENT AUTO 5 % (4-13); Mean Corpuscular HGB 26.4 pg (26.0-34.0); Mean Corpuscular Volume 88 fL (80-100); NEUTROPHILS ABSOLUTE AUTO 5.87 K/mm3 (1.96-9.15); NEUTROPHILS PERCENT AUTO 86 % (41-73); Platelet Count 270 K/mm3 (150-400); RDW Coefficient Variation 16.5 % (11.7-14.2); RDW Standard Deviation 53.5 fL (35.1-46.3); Red Blood Cell Count 4.13 M/mm3 (3.80-5.20); White Blood Cell Count 6.82 K/mm3 (4.00-11.30)
[2018-10-26 06:52] LABS: Albumin, Blood 2.9 g/dL (3.4-5.0); Albumin/Globulin Ratio 0.7 (0.8-1.8); Bilirubin, Total 0.6 mg/dL (0.1-1.0); Calcium, Blood 7.3 mg/dL (8.5-10.1); Creatinine, Blood 5.51 mg/dL (0.40-1.00); Potassium, Blood 3.3 mmol/L (3.5-5.5); Total Protein, Blood 6.9 g/dL (6.4-8.2)
== END 2018-10-26 10:55 | disposition home or self-care (01) ==
LOC: ER 05:37
PROVIDERS: Emergency Medicine
DX: R53.1 Weakness (principal); I13.0 Hypertensive heart and chronic kidney disease with heart failure and stage 1 through stage 4 chronic kidney disease, or unspecified chronic kidney disease; E11.22 Type 2 diabetes mellitus with diabetic chronic kidney disease; I50.9 Heart failure, unspecified; N18.9 Chronic kidney disease, unspecified; J44.9 Chronic obstructive pulmonary disease, unspecified; E78.5 Hyperlipidemia, unspecified; K21.9 Gastro-esophageal reflux disease without esophagitis; F17.200 Nicotine dependence, unspecified, uncomplicated; Z91.048 Other nonmedicinal substance allergy status; Z79.899 Other long term (current) drug therapy; Z79.82 Long term (current) use of aspirin; Z79.4 Long term (current) use of insulin; Z99.2 Dependence on renal dialysis
CPT/HCPCS: 72100; 80053; 85025; 93005; 93010

== ENCOUNTER 2018-11-23 00:26 | Day surgery (SDC) | payer MEDICARE, BC | END 2018-11-23 23:19 | disposition home or self-care (01) | LOC: WOUND 00:26 | DX: E11.621 Type 2 diabetes mellitus with foot ulcer (principal); L97.515 Non-pressure chronic ulcer of other part of right foot with muscle involvement without evidence of necrosis; E11.51 Type 2 diabetes mellitus with diabetic peripheral angiopathy without gangrene; I70.234 Atherosclerosis of native arteries of right leg with ulceration of heel and midfoot; E11.40 Type 2 diabetes mellitus with diabetic neuropathy, unspecified; I13.2 Hypertensive heart and chronic kidney disease with heart failure and with stage 5 chronic kidney disease, or end stage renal disease; E11.22 Type 2 diabetes mellitus with diabetic chronic kidney disease; I50.9 Heart failure, unspecified; N18.6 End stage renal disease; D63.1 Anemia in chronic kidney disease; J44.9 Chronic obstructive pulmonary disease, unspecified; I25.10 Atherosclerotic heart disease of native coronary artery without angina pectoris; I25.2 Old myocardial infarction ==

== ENCOUNTER 2018-11-30 00:47 | Day surgery (SDC) | payer MEDICARE, BC | END 2018-11-30 23:06 | disposition home or self-care (01) | LOC: WOUND 00:47 | DX: E11.621 Type 2 diabetes mellitus with foot ulcer (principal); E11.622 Type 2 diabetes mellitus with other skin ulcer; L97.515 Non-pressure chronic ulcer of other part of right foot with muscle involvement without evidence of necrosis; L97.819 Non-pressure chronic ulcer of other part of right lower leg with unspecified severity; E11.51 Type 2 diabetes mellitus with diabetic peripheral angiopathy without gangrene; I70.234 Atherosclerosis of native arteries of right leg with ulceration of heel and midfoot; E11.40 Type 2 diabetes mellitus with diabetic neuropathy, unspecified; I13.2 Hypertensive heart and chronic kidney disease with heart failure and with stage 5 chronic kidney disease, or end stage renal disease; E11.22 Type 2 diabetes mellitus with diabetic chronic kidney disease; I50.9 Heart failure, unspecified; N18.6 End stage renal disease; D63.1 Anemia in chronic kidney disease; E78.5 Hyperlipidemia, unspecified; J44.9 Chronic obstructive pulmonary disease, unspecified; I25.10 Atherosclerotic heart disease of native coronary artery without angina pectoris; I25.2 Old myocardial infarction; Z99.81 Dependence on supplemental oxygen; Z79.899 Other long term (current) drug therapy; Z79.02 Long term (current) use of antithrombotics/antiplatelets | CPT/HCPCS: G0463 ==

== ENCOUNTER 2018-12-18 10:20 | Day surgery (SDC) | payer MEDICARE, BC ==
[2018-12-19] MEDS ORDERED: FERRIC CITRATE210 MG PO (11:09)
[2018-12-19] MEDS ORDERED: BUME2 PO (11:11)
[2018-12-19] MEDS ORDERED: CLOP75 PO (11:12)
[2018-12-19] MEDS ORDERED: GABA300 PO (11:14)
[2018-12-19] MEDS ORDERED: NORTHERA100 MG PO (11:39)
[2018-12-19] MEDS ORDERED: Norco 10-325 T1 EACH PO (11:39)
[2018-12-19] MEDS ORDERED: SEVEC800 (11:41)
[2018-12-19] MEDS ORDERED: SPIRIVA RESPIMAT4 G1 IH (11:41)
[2018-12-19] MEDS ORDERED: ACET325 PO (11:42)
[2018-12-19] MEDS ORDERED: VELPHORO500 MG PO (11:42)
== END 2018-12-18 22:40 | disposition home or self-care (01) ==
LOC: WOUND 10:20
DX: E11.621 Type 2 diabetes mellitus with foot ulcer (principal); L97.415 Non-pressure chronic ulcer of right heel and midfoot with muscle involvement without evidence of necrosis; E11.622 Type 2 diabetes mellitus with other skin ulcer; L97.819 Non-pressure chronic ulcer of other part of right lower leg with unspecified severity; I70.234 Atherosclerosis of native arteries of right leg with ulceration of heel and midfoot; E11.29 Type 2 diabetes mellitus with other diabetic kidney complication; I25.10 Atherosclerotic heart disease of native coronary artery without angina pectoris; J44.9 Chronic obstructive pulmonary disease, unspecified; E11.22 Type 2 diabetes mellitus with diabetic chronic kidney disease; I13.2 Hypertensive heart and chronic kidney disease with heart failure and with stage 5 chronic kidney disease, or end stage renal disease; I50.9 Heart failure, unspecified; N18.6 End stage renal disease; E11.40 Type 2 diabetes mellitus with diabetic neuropathy, unspecified; M10.9 Gout, unspecified; M19.90 Unspecified osteoarthritis, unspecified site
CPT/HCPCS: G0463

== ENCOUNTER 2018-12-19 10:40 | Emergency (ER) | payer MEDICARE, BC ==
[~2018-12-19] VITALS: Ht 152.4 cm; Wt 81.7 kg
[2018-12-19] MEDS ORDERED: FERRIC CITRATE210 MG PO (11:09)
[2018-12-19] MEDS ORDERED: BUME2 PO (11:11)
[2018-12-19] MEDS ORDERED: CLOP75 PO (11:12)
[2018-12-19] MEDS ORDERED: GABA300 PO (11:14)
[2018-12-19] MEDS ORDERED: Norco 10-325 T1 EACH PO (11:39)
[2018-12-19] MEDS ORDERED: NORTHERA100 MG PO (11:39)
[2018-12-19] MEDS ORDERED: SPIRIVA RESPIMAT4 G1 IH (11:41)
[2018-12-19] MEDS ORDERED: SEVEC800 (11:41)
[2018-12-19] MEDS ORDERED: VELPHORO500 MG PO (11:42)
[2018-12-19] MEDS ORDERED: ACET325 PO (11:42)
== END 2018-12-19 12:10 | disposition home or self-care (01) ==
LOC: ER 10:40
DX: T82.838A Hemorrhage due to vascular prosthetic devices, implants and grafts, initial encounter (principal); Z91.048 Other nonmedicinal substance allergy status; Z79.82 Long term (current) use of aspirin; Z79.899 Other long term (current) drug therapy; Z79.4 Long term (current) use of insulin; I11.0 Hypertensive heart disease with heart failure; I50.9 Heart failure, unspecified; E11.9 Type 2 diabetes mellitus without complications; K21.9 Gastro-esophageal reflux disease without esophagitis; F17.200 Nicotine dependence, unspecified, uncomplicated
CPT/HCPCS: 99284

== ENCOUNTER 2018-12-25 10:23 | Day surgery (SDC) | payer MEDICARE, BC ==
[~2018-12-25 10:23] MED LIST changes: +ACET325 PO; +FERRIC CITRATE210 MG PO; +GABA300 PO; +Norco 10-325 T1 EACH PO; +SEVEC800; +SPIRIVA RESPIMAT4 G1 IH
== END 2018-12-25 22:49 | disposition home or self-care (01) ==
LOC: WOUND 10:23
DX: E11.621 Type 2 diabetes mellitus with foot ulcer (principal); I70.234 Atherosclerosis of native arteries of right leg with ulceration of heel and midfoot; L97.415 Non-pressure chronic ulcer of right heel and midfoot with muscle involvement without evidence of necrosis; E11.22 Type 2 diabetes mellitus with diabetic chronic kidney disease; I13.2 Hypertensive heart and chronic kidney disease with heart failure and with stage 5 chronic kidney disease, or end stage renal disease; I50.9 Heart failure, unspecified; N18.6 End stage renal disease; E11.51 Type 2 diabetes mellitus with diabetic peripheral angiopathy without gangrene; J44.9 Chronic obstructive pulmonary disease, unspecified; E78.5 Hyperlipidemia, unspecified; M19.90 Unspecified osteoarthritis, unspecified site; Z95.1 Presence of aortocoronary bypass graft; Z99.2 Dependence on renal dialysis
CPT/HCPCS: G0463